=== PATIENT | male | born 1990 | race Two or more races ===

== ENCOUNTER 2020-05-08 15:05 | Outpatient (REF) | payer OTHER, SELFPAY | END 2020-05-08 15:06 | disposition home or self-care (01) | LOC: HO.LAB 15:05 | PROVIDERS: PCP Internal Medicine; Visit Provider Internal Medicine | DX: Z20.822 Contact with and (suspected) exposure to COVID-19 (principal) | CPT/HCPCS: 36415; C9803; U0003 ==

== ENCOUNTER 2020-05-28 11:59 | Outpatient (REF) | payer OTHER, SELFPAY ==
[2020-05-28 14:13] LABS: Hematocrit 42.6 % (42-52); Mean Corpuscular HGB Conc 32.9 g/dl (31.0-36.0); Mean Corpuscular Hemoglobin 27.1 pg (27.0-33.0); Mean Corpuscular Volume 82.6 fL (80-98); Mean Platelet Volume 10.9 fL (9.4-12.4); Platelet Count 278 X10*3/uL (160-400); Red Blood Count 5.16 X10*6/uL (4.60-5.80); Red Cell Distribution Width 13.4 % (11.0-16.0); White Blood Count 8.3 X10*3/uL (4.8-10.8)
[2020-05-28 14:21] LABS: Estimated Average Glucose 103 mg/dL; Hemoglobin A1c % 5.2 %
[2020-05-28 14:33] LABS: Alanine Aminotransferase 75 U/L (0-40); Albumin Level 4.2 g/dL (3.5-5.0); Alkaline Phosphatase 62 U/L (39-117); Anion Gap 13 (12-20); Aspartate Amino Transferase 43 U/L (5-37); Blood Urea Nitrogen 15 mg/dL (9-16); Calcium 8.8 mg/dL (8.4-10.2); Carbon Dioxide 28 mmol/L (22-29); Chloride 104 mmol/L (96-108); Cholesterol 172 mg/dL; Estimated Glomerular Filt Rate > 60; Glucose Fasting 72 mg/dL (60-99); HDL Cholesterol 43 mg/dL; LDL Cholesterol Calculated 103 mg/dl; Potassium 4.6 mmol/L (3.3-5.1); Sodium 140 mmol/L (135-145); Total Protein 7.6 g/dL (6.5-8.0); Triglycerides 134 mg/dL
[2020-05-28 14:53] LABS: TSH reflex Free T4 1.56 uIU/mL (0.32-4.0)
== END 2020-05-28 12:00 | disposition home or self-care (01) ==
LOC: HO.HMGCLDS 11:59
PROVIDERS: PCP Physician Assistant; Visit Provider Physician Assistant
DX: I10 Essential (primary) hypertension (principal); Z13.29 Encounter for screening for other suspected endocrine disorder; Z13.220 Encounter for screening for lipoid disorders; Z13.1 Encounter for screening for diabetes mellitus
CPT/HCPCS: 36415; 80053; 80061; 83036; 84443; 85027

== ENCOUNTER 2020-06-17 08:24 | Outpatient (REF) | payer OTHER, SELFPAY ==
--- NOTE | ~2020-06-17 | US_ITS ---
EXAMINATION: US ABDOMEN COMPLETE CLINICAL INFORMATION: Abnormal LFTs. Splenomegaly. COMPARISON: Ultrasound abdomen 12/02/2015. TECHNIQUE: Real-time imaging of the abdominal viscera. FINDINGS: PANCREAS: The visualized head and body of the pancreas appears unremarkable. Remainder of the pancreas is obscured by bowel gas. ABDOMINAL AORTA: The proximal, mid, and distal segments are normal in caliber. INFERIOR VENA CAVA: Visualized portions are normal. LIVER: Diffuse increased echogenicity. The liver is normal in size. The liver contour is normal. No focal hepatic lesion. There is no intrahepatic biliary duct dilatation seen. GALLBLADDER: Normal. The gallbladder is physiologically distended without evidence of stones, sludge, polyps, wall thickening or pericholecystic fluid. COMMON BILE DUCT: Normal in caliber measuring 0.40 cm in diameter. RIGHT KIDNEY: Normal. No hydronephrosis. No renal calculi or focal parenchymal lesions. The kidney measures 11.4 cm in maximum dimension. LEFT KIDNEY: Normal. No hydronephrosis. No renal calculi or focal parenchymal lesions. The kidney measures 12.3 cm in maximum dimension. SPLEEN: Enlarged. The spleen measures 16.7 cm in maximum dimension. FREE FLUID: None. US/US abdomen complete IMPRESSION: 1. There is generalized increase in hepatic echotexture, consistent with fatty infiltration or hepatocellular disease. Please correlate clinically. No focal hepatic mass or intrahepatic biliary duct dilatation is seen. 2. Splenomegaly measuring 16.7 cm.
== END 2020-06-17 08:25 | disposition home or self-care (01) ==
LOC: HO.US 08:24
PROVIDERS: PCP Physician Assistant; Visit Provider Physician Assistant
DX: R16.1 Splenomegaly, not elsewhere classified (principal); R74.8 Abnormal levels of other serum enzymes
CPT/HCPCS: 76700

== ENCOUNTER 2021-04-27 10:07 | Outpatient (REF) | payer OTHER, SELFPAY ==
--- NOTE | ~2021-04-27 | MM_ITS ---
EXAMINATION: MM DIAGNOSTIC DIGITAL BREAST TOMOSYNTHESIS, BILATERAL US DIAGNOSTIC ULTRASOUND BREAST, RIGHT CLINICAL INFORMATION: 30-year-old with fullness and pain retroareolar right breast. COMPARISON: CTA chest 09/02/2018. TECHNIQUE: Digital breast tomosynthesis is performed in both the craniocaudal and mediolateral oblique views along with computer-aided detection (CAD). Synthesized 2D images are generated from the tomosynthesis. Additional right CC view is provided. Ultrasound right breast is targeted to the retroareolar and periareolar region and upper outer quadrant. Grayscale imaging and color Doppler are performed without and with harmonics. FINDINGS: There are scattered areas of fibroglandular density (ACR BI-RADS breast composition Category b). There is mild gynecomastia parenchymal pattern retroareolar right breast. Neither breast shows significant mass or architectural abnormality or abnormal calcifications. The skin contours are smooth. There is no skin thickening or coarsening of the stromal markings. There is a grouping of 3 small intramammary nodes upper outer quadrant right breast mid depth, similar to CT chest 2019. Ultrasound demonstrates typical gynecomastia type parenchymal pattern retroareolar breast without mass or architectural abnormality. No skin thickening or edema tracking in soft tissue planes. There are small intramammary nodes again seen upper outer quadrant corresponding to the mammography in prior CT. Results are discussed with the patient at time of visit. MM/MM tomosynthesis diagnostic BI IMPRESSION: 1. Right: Mild right gynecomastia. 2. Left: Unremarkable left breast. ASSESSMENT: BI-RADS 2: Benign RECOMMENDATION: Patient may be managed based on the clinical impression. If clinically indicated, further evaluation may be considered with surgical consult. Decision to proceed with biopsy should be based on clinical grounds and degree of clinical concern.
== END 2021-04-27 10:08 | disposition home or self-care (01) ==
LOC: HO.MAMMO 10:07
PROVIDERS: Visit Provider Physician Assistant
DX: N63.15 Unspecified lump in the right breast, overlapping quadrants (principal)
CPT/HCPCS: 76642; 77062; 77066

== ENCOUNTER 2022-02-25 13:40 | Emergency (ER) | payer OTHER, SELFPAY ==
[2022-02-25 13:44] VITALS: BP 127/81; PULSE 84; RESP 18; TEMP 36.9; O2SAT 98; BMI 55.0
--- NOTE | 2022-02-25 15:50 | ED_ITS ---
HPI - General Adult General Chief complaint: General Medical Stated complaint: Hemorrhoid Time Seen by Provider: 02/25/22 15:37 Source: patient, RN notes reviewed and old records reviewed Mode of arrival: ambulatory Limitations: no limitations History of Present Illness HPI narrative: 31-year-old male with past medical history of external bleeding hemorrhoids, GERD, gynecomastia, splenomegaly, hypertension, hypercholesteremia, RUTHANN is here for complaining of rectal pain. Patient states that he has had external hemorrhoids for sometimes. Patient states that right now he feels like the inflamed. Occasional blood in the stools after he wipes. Patient reports that he is not constipated. Reports that he is moving his bowels without any issues. Patient reports small amount of blood on the tissue after wiping. Onset (ago): day(s) Location: buttocks (Rectum) Related Data Previous Rx's Medication Instructions Recorded cpap #1 ea 05/07/20 blood pressure kit-extra large #1 ea 05/28/20 chlorhexidine gluconate 4 % 1 appl topical DAILY 30 days #473 04/08/21 topical liquid mL doxycycline hyclate 100 mg capsule 100 mg PO BID 7 days #14 caps 04/08/21 famotidine 20 mg tablet 20 mg PO BEDTIME PRN reflux 30 05/09/21 days #30 tabs docusate sodium 100 mg capsule 100 mg PO DAILY #30 caps 02/25/22 hydrocortisone 2.5 % topical cream 1 appl RI BID-TID PRN hemorrhoids 02/25/22 with perineal applicator #30 grams (Proctosol HC) Allergies Allergy/AdvReac Type Severity Reaction Status Date / Time CONTRAST Allergy Unknown NAUSEA & Uncoded 01/10/20 16:04 VOMITING contrast dye Allergy Unknown unknown Uncoded 05/11/20 17:16 Review of Systems Review of Systems: Constitutional : No Weight loss, No Fever, No Chills, No Night Sweats, No Fatigue, No MalaiseG Gastrointestinal : No Nausea, No Vomiting, No Diarrhea, No Constipation, No abdominal Pain, No Hematochezia, No Melena, rectal pain Genitourinary : no irregular bleeding, No Dysuria, No Urinary Frequency, No Hematuria, No Urinary Incontinence, No Urgency, No Flank Pain, No Urinary Flow Changes, No Hesitancy Musculoskeletal : No joint pain, No Myalgias, No Joint Swelling Skin : No Skin Lesions, No rash Neuro : No Weakness, No Numbness, No Paresthesias, No Loss of Consciousness, No Dizziness, No Headache Psych : No Anxiety/Panic, No Depression, No SI/HI/AH/VH, No Social Issues, Heme/Lymph: No Bruising, No Bleeding,No Lymphadenopathy Endocrine : No Polyuria, No Polydipsia, No Temperature Intolerance Yes all other systems are reviewed and are negative [facility] Past Medical History Medical History RUTHANN (obstructive sleep apnea) Social History Social History (Updated 05/28/20 @ 18:15 by Travon Hawkins PA-C) Alcohol intake: never Advance Directives: No Advance Directives Information Provided: No 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 Physical Exam ED Vital Signs: Vital Signs - 24 hr 02/25/22 13:44 Temperature 98.4 F Pulse Rate 84 Respiratory Rate 18 Blood Pressure 127/81 Pulse Oximetry 98 Oxygen Delivery Method Room Air BMI result Body Mass Index 55.0 Const General: no acute distress Nutritional Appearance: obese Orientation/consciousness: patient oriented x3 Limitations: no limitations GI Inspection: Yes normal to inspection and Yes obesity Auscultation: normal bowel sounds Rectal Exam - Male: Yes External hemorrhoid(s) present (1-3 o'clock 1.5 cm external hemorrhoid, nonbleeding) General: Yes no CVA tenderness Back/Spine/Pelvis Back: no CVA tenderness Neuro General: patient oriented x3 Course Course Course Narrative: 31-year-old male with past medical history of external bleeding hemorrhoids, GERD, gynecomastia, splenomegaly, hypertension, hypercholesteremia, RUTHANN is here for complaining of rectal pain. Patient states that he has had external hemorrhoids for sometimes. Patient states that right now he feels like the inflamed. Occasional blood in the stools after he wipes. Patient reports that he is not constipated. Reports that he is moving his bowels without any issues. Patient reports small amount of blood on the tissue after wiping. Flat noninflamed external hemorrhoid. Will send patient home high dose hydrocortisone. Patient was encouraged to use Sitz baths, donut pillow. Patient can get [id number] melatonin 3 mg to help him get some sleep. Patient will follow-up with his PCP and General surgery. Patient was encouraged to return to emergency department if he will have increased rectal bleed and rectal pain. Discharge Plan Discharge Clinical Impression: External bleeding hemorrhoids Patient Disposition: Home, Self-Care Instructions: Hemorrhoids (ED) Additional Instructions: You were seen here today and diagnosed with external hemorrhoids. Please make sure that you do Sitz baths, sit on donut pillow. Make sure that you apply Proctosol cream 2 to 3 times a day as directed. Start taking docusate sodium 100 mg every evening. If you continue to have rectal pain, bleed you may follow-up with General surgery. You may take melatonin 3 mg every night to help you sleep. Prescriptions: New docusate sodium 100 mg capsule 100 mg PO DAILY Qty: 30 0RF hydrocortisone [Proctosol HC] 2.5 % cream with perineal applicator 1 appl RI BID-TID PRN (Reason: hemorrhoids) Qty: 30 0RF No Action (DME) cpap 4-10 cm H2) See Rx Instructions .Route .MEDSUPPLY Qty: 1 0RF Rx Instructions: As directed famotidine 20 mg tablet 20 mg PO BEDTIME PRN (Reason: reflux) 30 Days Qty: 30 3RF (DME) blood pressure kit-extra large Kit See Rx Instructions .ROUTE .MEDSUPPLY Qty: 1 0RF Rx Instructions: As directed chlorhexidine gluconate 4 % liquid 1 appl topical DAILY 30 Days Qty: 473 0RF doxycycline hyclate 100 mg capsule 100 mg PO BID 7 Days Qty: 14 0RF Referrals: Travon Hawkins PA-C [Primary Care Provider] - Stevan Marmolejo MD [Physician] - 2 weeks (External hemorrhoids) Interventions: ED Discharge Assessment Last Done: 02/25/22 16:12 Discharge Date/Time: 02/25/22 16:12
--- OUTSIDE RECORDS SUMMARY | 2022-02-25 16:03 | XMS_ITS | Continuity of Care Document ---
:1990 Author Organization [facility] Address [address] [place] [address] Drive [address] [place] [address]- Care Team Providers Name Role Phone Yola Brito MD Primary Care Physician Encounter [facility] ACCT R [id number] Date(s): 02/01/20 - 02/08/20 [facility] [address] [place] [address] Drive [address] [place] [address]- [facility] Attending Physician: Chuckie Villa MD Referring Physician: Yola Brito MD Allergies, Adverse Reactions, Alerts Substance Reaction Severity Status iodinated radiocontrast dyes N/V Act sunita Medications Neurontin 100 mg oral capsule 100 mg, 1, capsule, By Mouth, 3 times a day, # 42 capsule, Refills 0, Tot. Refills 0, Maintenance, 01/12/19 14:47:09 EDT, Route to Pharmacy Electronically, [id number], [facility]/pharmacy #[id number] Start Date: 01/12/19 Stop Date: 01/26/19 Status: OrderedoxyCODONE 5 mg oral tablet See Instructions, PRN, 1-2 tabletS By Mouth at bedtime prn break thru pain, # 15 tablet, Refills 0, Tot. Refills 0, Maintenance, for pain, 01/22/19 9:16:29 EDT, Instructions Replace Required Details, Route to Pharmacy Electronically, [id number]... Start Date: 01/22/19 Status: Ordered Problem List Condition Effective Dates Status Health Status Informant Gynecomastia(Confirmed) Active Vital Signs Most recent to oldest [Reference Range]: 1 Height 180.34 cm (02/01/20 9:26 AM) Weight 154 kg (02/01/20 9:26 AM) Body Mass Index [18.5-24.99] 47.35 *>HHI* (02/01/20 9:26 AM) Temperature [96.8-100.4 DegF] 98.0 DegF (02/01/20 9:26 AM) Social History Social History Type Response Smoking Status Never smoker entered on: 10/14/15 Sex
--- OUTSIDE RECORDS SUMMARY | 2022-02-25 16:03 | XMS_ITS | Continuity of Care Document ---
:1990 Author Organization [facility] Address [address] [place] [address] Drive [address] [place] [address]- Care Team Providers Name Role Phone Ovi Cochran MD, Yola Figueroa Primary Care Physician Encounter [facility] Date(s): 07/16/19 - 07/26/19 [facility] [address] [place] [address] Drive [address] [place] [address]- [facility] Attending Physician: Admtr, Luis Daniel8 Admitting Physician: Admtr, Ar8 Referring Physician: Admtr, Ar8 Allergies, Adverse Reactions, Alerts Substance Reaction Severity Status iodinated radiocontrast dyes N/V Act sunita Medications Neurontin 100 mg oral capsule 100 mg, 1, capsule, By Mouth, 3 times a day, # 42 capsule, Refills 0, Tot. Refills 0, Maintenance, 01/12/19 14:47:09 EDT, Route to Pharmacy Electronically, [id number], [facility]/pharmacy #[id number] Start Date: 01/12/19 Stop Date: 01/26/19 Status: OrderedoxyCODONE 5 mg oral tablet See Instructions, PRN, 1-2 tabletS By Mouth at bedtime prn break thru pain, # 15 tablet, Refills 0, Tot. Refills 0, Maintenance, for pain, 01/22/19 9:16:29 EDT, Instructions Replace Required Details, Route to Pharmacy Electronically, [id number]... Start Date: 01/22/19 Status: Ordered Problem List Condition Effective Dates Status Health Status Informant Gynecomastia(Confirmed) Active Social History Social History Type Response Smoking Status Never smoker entered on: 10/14/15 Sex
--- OUTSIDE RECORDS SUMMARY | 2022-02-25 16:03 | XMS_ITS | Continuity of Care Document ---
:1990 Author Organization [facility] Address [address] [place] [address] Drive [address] [place] [address]- Care Team Providers Name Role Phone Ovi Cochran MD, Yola Figueroa Primary Care Physician Encounter [facility] Date(s): 10/08/19 - 11/07/19 [facility] [address] [place] [address] Drive [address] [place] [address]- [facility] Attending Physician: Admtr, Luis Daniel8 Admitting Physician: Admtr, Ar8 Referring Physician: Admtr, Ar8 Allergies, Adverse Reactions, Alerts Substance Reaction Severity Status iodinated radiocontrast dyes N/V Act sunita Medications Neurontin 100 mg oral capsule 100 mg, 1, capsule, By Mouth, 3 times a day, # 42 capsule, Refills 0, Tot. Refills 0, Maintenance, 01/12/19 14:47:09 EDT, Route to Pharmacy Electronically, [id number], [facility]/pharmacy #[id number] Start Date: 01/12/19 Stop Date: 01/26/19 Status: OrderedoxyCODONE 5 mg oral tablet See Instructions, PRN, 1-2 tabletS By Mouth at bedtime prn break thru pain, # 15 tablet, Refills 0, Tot. Refills 0, Maintenance, for pain, 01/22/19 9:16:29 EDT, Instructions Replace Required Details, Route to Pharmacy Electronically, [id number]... Start Date: 01/22/19 Status: Ordered Problem List Condition Effective Dates Status Health Status Informant Gynecomastia(Confirmed) Active Social History Social History Type Response Smoking Status Never smoker entered on: 10/14/15 Sex
--- OUTSIDE RECORDS SUMMARY | 2022-02-25 16:04 | XMS_ITS | Continuity of Care Document ---
:1990 Author Organization [facility] Address [address] [place] [address] Drive [address] [place] [address]- Care Team Providers Name Role Phone Ovi Cochran MD, Yola Figueroa Primary Care Physician Encounter [facility] Date(s): 06/11/19 - 08/15/19 [facility] [address] [place] [address] Drive [address] [place] [address]- [facility] Attending Physician: Chuckie Villa MD Referring Physician: Yola Brito MD Allergies, Adverse Reactions, Alerts Substance Reaction Severity Status iodinated radiocontrast dyes N/V Act sunita Medications Neurontin 100 mg oral capsule 100 mg, 1, capsule, By Mouth, 3 times a day, # 42 capsule, Refills 0, Tot. Refills 0, Maintenance, 01/12/19 14:47:09 EDT, Route to Pharmacy Electronically, [id number], [facility]/pharmacy #[id number] Start Date: 01/12/19 Stop Date: 01/26/19 Status: OrderedoxyCODONE 5 mg oral tablet See Instructions, PRN, 1-2 tabletS By Mouth at bedtime prn break thru pain, # 15 tablet, Refills 0, Tot. Refills 0, Maintenance, for pain, 01/22/19 9:16:29 EDT, Instructions Replace Required Details, Route to Pharmacy Electronically, [id number]... Start Date: 01/22/19 Status: Ordered Problem List Condition Effective Dates Status Health Status Informant Gynecomastia(Confirmed) Active Social History Social History Type Response Smoking Status Never smoker entered on: 10/14/15 Sex
--- OUTSIDE RECORDS SUMMARY | 2022-02-25 16:04 | XMS_ITS | Continuity of Care Document ---
:1990 Author Organization [facility] Address [address] [place] [address] Drive [address] [place] [address]- Care Team Providers Name Role Phone Ovi Cochran MD, Yola Figueroa Primary Care Physician [place] [facility] [place]s): 07/31/19 - 11/07/19 [facility] [address] [place] [address] Drive [address] [place] [address]- [facility] Attending Physician: Chuckie Villa MD Allergies, Adverse Reactions, Alerts Substance Reaction Severity Status iodinated radiocontrast dyes N/V Act sunita Medications Neurontin 100 mg oral capsule 100 mg, 1, capsule, By Mouth, 3 times a day, # 42 capsule, Refills 0, Tot. Refills 0, Maintenance, 01/12/19 14:47:09 EDT, Route to Pharmacy Electronically, [id number], [facility]/pharmacy #[id number] Start Date: 01/12/19 Stop Date: 01/26/19 Status: OrderedoxyCODONE 5 mg oral tablet See Instructions, PRN, 1-2 tabletS By Mouth at bedtime prn break thru pain, # 15 tablet, Refills 0, Tot. Refills 0, Maintenance, for pain, 01/22/19 9:16:29 EDT, Instructions Replace Required Details, Route to Pharmacy Electronically, [id number]... Start Date: 01/22/19 Status: Ordered Problem List Condition Effective Dates Status Health Status Informant Gynecomastia(Confirmed) Active Social History Social History Type Response Smoking Status Never smoker entered on: 10/14/15 Sex
--- OUTSIDE RECORDS SUMMARY | 2022-02-25 16:04 | XMS_ITS | Continuity of Care Document ---
:1990 Author Organization [facility] Address [address] [place] [address] Drive [address] [place] [address]- Care Team Providers Name Role Phone Ovi Cochran MD, Yola Figueroa Primary Care Physician Encounter [facility] [place] Date(s): 02/01/20 - 03/02/20 [facility] [address] [place] [address] Drive [address] [place], [place] [address] Attending Physician: Admtr, Luis Daniel8 Admitting Physician: Admtr, Ar8 Referring Physician: Admtr, Ar8 Allergies, Adverse Reactions, Alerts Substance Reaction Severity Status iodinated radiocontrast dyes N/V Act sunita Medications Neurontin 100 mg oral capsule 100 mg, 1, capsule, By Mouth, 3 times a day, # 42 capsule, Refills 0, Tot. Refills 0, Maintenance, 01/12/19 14:47:09 EDT, Route to Pharmacy Electronically, [id number], [facility]/pharmacy #[id number] Start Date: 01/12/19 Stop Date: 01/26/19 Status: OrderedoxyCODONE 5 mg oral tablet See Instructions, PRN, 1-2 tabletS By Mouth at bedtime prn break thru pain, # 15 tablet, Refills 0, Tot. Refills 0, Maintenance, for pain, 01/22/19 9:16:29 EDT, Instructions Replace Required Details, Route to Pharmacy Electronically, [id number]... Start Date: 01/22/19 Status: Ordered Problem List Condition Effective Dates Status Health Status Informant Gynecomastia(Confirmed) Active Social History Social History Type Response Smoking Status Never smoker entered on: 10/14/15 Sex
--- OUTSIDE RECORDS SUMMARY | 2022-02-25 16:04 | XMS_ITS | Continuity of Care Document ---
:1990 Author Organization [facility] Address [address] [place] [address] Drive [address] [place] [address]- Care Team Providers Name Role Phone Ovi Cochran MD, Yola Figueroa Primary Care Physician Encounter [facility] [place] Date(s): 06/11/19 - 06/18/19 [facility] [address] [place] [address] Drive [address] [place] [address]- [facility] Attending Physician: Chuckie Villa MD Allergies, Adverse Reactions, Alerts Substance Reaction Severity Status iodinated radiocontrast dyes N/V Act sunita Medications Neurontin 100 mg oral capsule 100 mg, 1, capsule, By Mouth, 3 times a day, # 42 capsule, Refills 0, Tot. Refills 0, Maintenance, 01/12/19 14:47:09 EDT, Route to Pharmacy Electronically, [id number], [facility]/pharmacy #[id number] Start Date: 01/12/19 Stop Date: 01/26/19 Status: OrderedoxyCODONE 5 mg oral tablet See Instructions, PRN, 1-2 tabletS By Mouth at bedtime prn break thru pain, # 15 tablet, Refills 0, Tot. Refills 0, Maintenance, for pain, 01/22/19 9:16:29 EDT, Instructions Replace Required Details, Route to Pharmacy Electronically, [id number]... Start Date: 01/22/19 Status: Ordered Problem List Condition Effective Dates Status Health Status Informant Gynecomastia(Confirmed) Active Vital Signs Most recent to oldest [Reference Range]: 1 Height 180.34 cm (06/11/19 2:06 PM) Weight 154 kg (06/11/19 2:06 PM) Body Mass Index [18.5-24.99] 47.35 *>I* (06/11/19 2:06 PM) Social History Social History Type Response Smoking Status Never smoker entered on: 10/14/15 Sex
--- OUTSIDE RECORDS SUMMARY | 2022-02-25 16:04 | XMS_ITS | Continuity of Care Document ---
:1990 Author Organization [facility] Address [address] [place] [address]- Care Team Providers Name Role Phone Ovi Cochran MD, Lucrecia Primary Care Physician Encounter [facility] [place] Date(s): 02/09/21 - 02/09/[address] [address]- Discharge Disposition: A-D/C Walkout Attending Physician: Not on Staff, Attending MD Admitting Physician: Not on Staff, Admitting MD Referring Physician: Not on Staff, Referring MD Allergies, Adverse Reactions, Alerts Substance Reaction Severity Status iodinated radiocontrast dyes N/V Act sunita Medications Neurontin 100 mg oral capsule 100 mg, 1, capsule, By Mouth, 3 times a day, # 42 capsule, Refills 0, Tot. Refills 0, Maintenance, 01/12/19 14:47:09 EDT, Route to Pharmacy Electronically, [id number], [facility]/pharmacy #[id number] Start Date: 01/12/19 Stop Date: 01/26/19 Status: OrderedoxyCODONE 5 mg oral tablet See Instructions, PRN, 1-2 tabletS By Mouth at bedtime prn break thru pain, # 15 tablet, Refills 0, Tot. Refills 0, Maintenance, for pain, 01/22/19 9:16:29 EDT, Instructions Replace Required Details, Route to Pharmacy Electronically, [id number]... Start Date: 01/22/19 Status: Ordered Problem List Condition Effective Dates Status Health Status Informant Gynecomastia(Confirmed) Active Results Radiology Reports Exam Date Time Procedure Performing Provider Status 02/09/21 12:52 PM Chest 2 Views Frontal and Sandy Bhatti (Verified) Lat Notes:(Chest 2 Views Frontal and Lat) Reason For Exam: Chest Pain;Other:RESULT: Chest 2 Views Frontal and Lat Chest 2 Views Frontal and Lat Hx of Present Illness: epigastric abd pain x 1 week and dark stools x2-days, +nausea, denies fevers or chills hx of enlarged spleen; Reason: Other:; Chest Pain; COMPARISON: 01/26/2017. FINDINGS: LINES AND TUBES: None. LUNGS AND PLEURA: Clear lungs. Normal pulmonary vascularity. No pleural effusion. No pneumothorax. HEART, MEDIASTINUM AND JAMARCUS: Heart is normal in size. Normal upper mediastinal and hilar contour. BONES AND SOFT TISSUES: No acute abnormality. IMPRESSION: No acute abnormality. WSN: [id number] Ordering Physician: Frida Guaman MD Dictated By: Chris Gutierrez MD Dictated Date/Time: 02/09/21 1:21 pm Reviewed By: Chris Gutierrez MD Signed By: Chris Gutierrez MD Signed Date/Time: 02/09/21 1:21 pm Transcribed By: CIELO Transcribed Date/Time: 02/09/21 1:11 pm Vital Signs Most recent to oldest [Reference Range]: 1 2 Height 180 cm (02/09/21 11:46 AM) Weight 178 kg (02/09/21 11:46 AM) Oxygen Saturation [94-100 %] 97 % 99 % (02/09/21 11:46 AM) (02/09/21 11:13 AM) Pulse Rate [55-90 bpm] 84 bpm 100 bpm (02/09/21 11:46 AM) *H* (02/09/21 11:13 AM) Blood Pressure [90-138/55-84 mm Hg] 152/98 mm Hg *H* (02/09/21 11:46 AM) Respiratory Rate [16-30 br/min] 18 br/min (02/09/21 11:46 AM) Temperature [96.8-100.4 DegF] 97.7 DegF (02/09/21 11:46 AM) Mode of Delivery (Oxygen) Room air Room air (02/09/21 11:46 AM) (02/09/21 11:13 AM) Blood pressure sites Arm, right (02/09/21 11:46 AM) Temperature Route Oral (02/09/21 11:46 AM) Dry Weight 178 kg (02/09/21 11:46 AM) Social History Social History Type Response Smoking Status Never smoker entered on: 10/14/15 Sex
== END 2022-02-25 16:12 | disposition home or self-care (01) ==
PROVIDERS: Emergency Provider Emergency Medicine; PCP Physician Assistant
DX: K64.4 Residual hemorrhoidal skin tags (principal); I10 Essential (primary) hypertension; E66.9 Obesity, unspecified; Z68.43 Body mass index [BMI] 50.0-59.9, adult
CPT/HCPCS: 99282; 99283

== ENCOUNTER 2022-12-21 11:05 | Outpatient (AMB) | payer OTHER, SELFPAY ==
[2022-12-21 11:07] VITALS: BP 110/60; PULSE 73; O2SAT 97; BMI 57.2
--- NOTE | 2022-12-21 11:07 | A.OFFPC_ITS ---
Vital Signs 12/21/22 11:07 Height 5 ft 11 in Weight 410 lb BMI 57.2 BP 110/60 Blood Pressure Location Lt brachial Position Sitting Pulse 73 Pulse Source Pulse Oximeter Pulse Oximetry (%) 97 Oxygen Delivery Method Room Air Intake Visit Reasons: Annual PE Intake Note: Patient is here today for a physical. 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: Not Required per policy Accompanied by: Self / Same As Patient Allergies No Known Allergies Allergy (Verified 12/21/22 11:39) Medication List - Last Reconciled 12/21/22 by GABE Fuentes [cpap As directed] Tobacco use date assessed: 12/21/22 Dental Screening Dental Screen Date: 12/21/22 Did you have a dental visit in the last 12 months?: No Did you have a dental problem in the last 6 months where you did not have access to dental care?: No Was dental information given to patient?: No HPI HPI Comments History of Present Illness Details 32-year-old male past medical history significant for GERD, hypertension, splenomegaly, gynecomastia and obstructive sleep apnea. Patient of Samm Hawkisn last seen 2 years ago presents today for physical exam. Review of the notes patient was seen in the emergency room in February for bleeding hemorrhoid prescribed hydrocortisone cream recommended Sitz baths. Patient currently using CPAP greater than 4 hours good effect. Does report CPAP machine is pumping strange. Referral placed to pulmonology to establish care for new CPAP machine. Patient requesting referral for [facility] bariatric surgery, referral entered. Patient also reports that he gets frequent Boils type occasionally filled pus come and go. Patient states constantly wearing boots and reports that the bottom of his feet are flaking and occasionally itchy. Eye exam: 2020 [facility] Medical History RUTHANN (obstructive sleep apnea) Surgical History History of surgery on wrist Family History (Updated 12/21/22 @ 11:43 by GABE Fuentes) Mother No problems noted. Father No problems noted. 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 1. Little interest or pleasure in doing things: not at all 2. Feeling down, depressed, or hopeless: not at all 3. Trouble falling or staying asleep, or sleeping too much: not at all 4. Feeling tired or having little energy: not at all 5. Poor appetite or overeating: not at all 6. Feeling bad about yourself - or that you are a failure or have let yourself or your family down: not at all 7. Trouble concentrating on things, such as reading the newspaper or watching television: not at all 8. Moving or speaking so slowly that other people could have noticed. Or the opposite - being so fidgety or restless that you have been moving around a lot more than usual: not at all 9. Thoughts that you would be better off or of hurting yourself in some way: not at all Total score: 0 Depression Screening Interpretation: Negative 55577 - PHQ-9 Billing: Yes Source: Developed by Drs. Jonel Gutierrez, Sloane Warner, Wes Oakes and colleagues, with an educational xenia from [employer]. Thrive Questionnaire Date Thrive assessed: 12/21/22 I am a: Patient What is your living situation today?: I have a steady place to live Within the past 12 months, did the food you bought not last and you didn't have the money to get more?: Never true Within the past 12 months, did you worry whether your food would run out before you got money to buy more?: Never true Do you have trouble paying for medicines?: No Do you have trouble getting transportation to medical appointments?: No Do you have trouble paying your heating and electricity bill?: No Do you have trouble taking care of your child, family member or friend?: No Do you have trouble with day-to-day activities such as bathing, preparing meals, shopping, managing finances, etc.?: No Are you currently unemployed and looking for a job?: No Are you interested in more education?: No Currently or been in a relationship where the following occur: no concerns reported AUDIT C Alcohol Use Questionnaire (AUDIT-C) 1. How often do you have a drink containing alcohol?: Monthly or less Total Score: 1 MARGY-7 AMB Questionnaire MARGY-7 Date MARGY - 7 assessed: 12/21/22 Feeling nervous, anxious, or on edge: 0 = Not at all Not being able to stop or control worryin = Not at all Worrying too much about different things: 0 = Not at all Trouble relaxin = Not at all Being so restless that it is hard to sit still: 0 = Not at all Becoming easily annoyed or irritable: 0 = Not at all Feeling afraid as if something awful might happen: 0 = Not at all Total MARGY-7 score (0-4 normal; 5-9 mild; 10-14 moderate; 15-21 severe): 0 Source: Developed by Drs. Jonel Gutierrez, Sloane Warner, Wes Oakes and colleagues, with an educational xenia from [employer]. MARGY-7 Assessment Billing MARGY-7 Assessment Tool: MARGY-7 Assessment 09614 Review of Systems Const Denies chills, Denies fatigue, Denies fever(s) and Denies poor appetite Eyes Denies no additional complaints ENT Reports Normal hearing present Card Denies chest pain, Denies syncope, Denies rapid heart rate and Denies dyspnea Resp Denies cough and Denies dyspnea GI Denies change in stool character, Denies constipation, Denies diarrhea, Denies nausea and Denies vomiting Denies dysuria, Denies urinary frequency and Denies urinary urgency Skin/Breast Reports other (boil to right side ) Neuro Reports Normal hearing present, Denies confusion and Denies syncope Psych Denies confusion Endo Denies fatigue Physical exam (Primary Care) Vital Signs: Last Vital Signs Pulse 73 12/21/22 11:07 BP 110/60 12/21/22 11:07 Pulse Ox 97 12/21/22 11:07 Oxygen Delivery Method Room Air 12/21/22 11:07 BMI result Body Mass Index 57.2 Tobacco/Smoking Status: Tobacco use Status Tobacco use date assessed 12/21/22 12/21/22 11:19 Patient Tobacco Use Status Never used Tobacco 12/21/22 11:43 e-Cigarette/Vaping Use Never Used 12/21/22 11:43 PHQ-9: PHQ-9 Score PHQ-9: Total score 0 12/21/22 11:44 Depression Screening Interpretation: Negative Thrive Assessment: Date of Thrive Assessment Date Thrive assessed 12/21/22 12/21/22 11:36 Currently or been in a relationship where the following occur: no concerns reported Const General: cooperative and healthy appearing; No acute distress or confusion Orientation/consciousness: patient oriented x3 and No confusion HENMT Head: Yes normocephalic and Yes atraumatic Ears: external ears normal and TM's normal bilaterally General nose exam: Normal external nose present and Normal nasal mucous membranes and turbinates present Face and sinus: Yes normal facial exam and Yes sinuses nontender Mouth: moist mucous membranes Throat: Yes tonsils normal Eyes Conjunctivae: conjunctivae normal Sclerae: sclerae normal Pupils: Equal, round and reactive pupils present and Pupils normal by confrontation EOM: EOMs intact bilaterally Direct Ophthalmoscopy: normal light reflex Neck Neck: Yes no lymphadenopathy and Yes supple Thyroid: Thyroid normal Chest Chest palpation & inspection: normal inspection of the chest Resp Effort & Inspection: normal respiratory effort Auscultation: clear to auscultation bilaterally, no crackles, no rhonchi and no wheezes Cardio Rate: regular rate Rhythm: regular rhythm Peripheral pulses: radial pulses present and dorsalis pedis present GI Inspection: Yes normal to inspection Palpation (GI): Soft to palpation, nontender and No hepatosplenomegaly present Auscultation: normoactive bowel sounds Skin General skin exam: other (Quarter size erythematous superficial abscess noted to right side) Neuro General: patient oriented x3 and No confusion Cranial nerves: Yes CN's II-XII intact bilaterally, Yes Equal, round and reactive pupils present and Yes Normal hearing present Cognition (Neuro): normal cognition Gait exam (Neuro): Normal gait present Motor exam (neuro): 5/5 motor strength present throughout Deep tendon reflexes (DTR's): Right brachioradialis reflex intensity grade: 2+, Left brachioradialis reflex intensity grade: 2+, Right patellar reflex intensity grade: 2+ and Left patellar reflex intensity grade: 2+ Extrem General: No edema Assessment and Plan Assessment & Plan (1) HTN (hypertension): Code(s): I10 - Essential (primary) hypertension Qualifiers: Hypertension type: essential hypertension Qualified Code(s): I10 - Essential (primary) hypertension Plan: Blood pressure optimal in office today. Not currently on any hypertensive medication at this. (2) Obese: Code(s): E66.9 - Obesity, unspecified Qualifiers: Body mass index: BMI 60.0-69.9 Obesity classification: adult class 3 (BMI >= 40) Obesity type: due to excess calories Serious obesity comorbidity presence: without serious comorbidity Qualified Code(s): E66.01 - Morbid (severe) obesity due to excess calories; Z68.44 - Body mass index [BMI] 60.0- 69.9, adult Plan: Referral entered to [facility] bariatric surgery as requested by patient. (3) RUTHANN (obstructive sleep apnea): Code(s): G47.33 - Obstructive sleep apnea (adult) (pediatric) Plan: Referral entered to pulmonology to establish care for new CPAP machine. (4) Abscess of skin or subcutaneous tissue: Code(s): L02.91 - Cutaneous abscess, unspecified Plan: Keflex 500 mg b.i.d. x7 days sent to patient's pharmacy (5) Athletes foot: Code(s): B35.3 - Tinea pedis Plan: clotrimazole cream BID x 4 weeks sent to patients pharmacy. Plan Follow up on 6 months. Orders: Orders Comprehensive [place]. Panel Fast Today I10 - Essential (primary) hypertension Lipid Panel Today E66.9 - Obesity, unspecified TSH reflex Free T4 Today Z13.29 - Encounter for screening for other suspected endocrine disorder Complete Blood Count Auto Diff Today Z13.0 - Encounter for screening for diseases of the blood and blood-forming organs and certain disorders involving the immune mechanism Referrals Bariatric Surgery Referral E66.9 - Obesity, unspecified Pulmonology Referral G47.33 - Obstructive sleep apnea (adult) (pediatric) Medications: New clotrimazole 1% (Athlete's Foot (clotrimazole)) 1 appl topical BID 45 grams 0RF 4 weeks B35.3 - Tinea pedis cephalexin 500 mg PO BID 14 caps 0RF L02.91 - Cutaneous abscess, unspecified Coding Level of Care Code Est Pt Prev Care 18-39y(23328) Diagnoses HTN (hypertension) I10 Hypertension type: essential hypertension Obese E66.01; Z68.44 Body mass index: BMI 60.0-69.9 Obesity classification: adult class 3 (BMI >= 40) Obesity type: due to excess calories Serious obesity comorbidity presence: without serious comorbidity RUTHANN (obstructive sleep apnea) G47.33 Abscess of skin or subcutaneous tissue L02.91 Athletes foot B35.3 Additional Codes MARGY-7 Assessment Billing - MARGY-7 Assessment Tool: MARGY-7 Assessment 37015 ([id number])
== END 2022-12-21 12:04 | disposition home or self-care (01) ==
PROVIDERS: PCP Physician Assistant; Visit Provider Nurse Practitioner Family
DX: Z00.00 Encounter for general adult medical examination without abnormal findings (principal); I10 Essential (primary) hypertension; E66.01 Morbid (severe) obesity due to excess calories; Z68.44 Body mass index [BMI] 60.0-69.9, adult; G47.33 Obstructive sleep apnea (adult) (pediatric); L02.91 Cutaneous abscess, unspecified; B35.3 Tinea pedis
CPT/HCPCS: 99395

== ENCOUNTER 2023-01-26 14:27 | Outpatient (AMB) | payer OTHER, SELFPAY ==
[2023-01-26 14:35] VITALS: BP 124/88; PULSE 76; O2SAT 97; BMI 57.3
--- NOTE | 2023-01-26 14:35 | MHC.OFFVIS ---
Intake Vital Signs 01/26/23 14:35 Height 5 ft 11 in Weight 411 lb BMI 57.3 BP 124/88 Blood Pressure Location Lt brachial Position Sitting Pulse 76 Pulse Source Pulse Oximeter Pulse Oximetry (%) 97 Oxygen Delivery Method Room Air Intake Visit Reasons: Obstructive sleep apnea Intake Note: pt is here as a new patient for onofre, he has a machine at home, he feels there is a pressure issue, pt has high deductible and has been out of supplies for a while, cpap mask offered. Told pt about cpap.[employer] Corporate Administrator Required: No Allergies No Known Allergies Allergy (Verified 01/26/23 15:08) Medication List - Last Reconciled 01/26/23 by Lyudmila Garsia MD [cpap As directed] Do you need a note to return to daycare/school/sports/work: No HPI Obstructive sleep apnea HPI Details This the 32 years old gentleman, a case of super morbid obesity, and obstructive/central sleep apneas since 2019 Is being seen for the 1st time for management of his sleep apnea. He say is that he was relatively of normal weight but after he get he put on lot of weight. He has been heavy like now, at least since 2014. Back in 2019 he was sent for a sleep study in the sleep lab. It confirms that he had very severe obstructive sleep apnea with some central component. There after the patient was started on CPAP therapy, probably by his primary care physician, with auto PAP mode ( pressure setting 4-10 cm ) He used the CPAP machine for the 1st few years regularly and was sleeping better. Now since the early 2022, he has not been able to by supplies , due to high co-payment. He is still using his CPAP but irregularly, because he does not have a functioning fullface mask. On the nights that he uses CPAP he definitely sleeps better. 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 He is the on the insurance of his , which has a high co-payment for the supplies. His comorbidities include hypertension, borderline diabetes mellitus, GERD symptoms. He has join the weight management program, and hoping that he will undergo gastroplasty procedure at some point. [facility] Medical History (Updated 01/26/23 @ 16:43 by Lyudmila Garsia MD) Morbid obesity ONOFRE (obstructive sleep apnea) Surgical History History of surgery on wrist Family History Mother No problems noted. Father No problems noted. 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 Cognitive needs: No Hearing needs: No Vision needs: No Review of Systems Const All systems reviewed & are unremarkable except as noted in HPI and below Eyes Reports no additional complaints ENT Reports no additional complaints Card Denies chest pain, Denies irregular heart rhythm, Denies leg edema and Denies dyspnea Resp Denies cough, Denies dyspnea and Denies wheezing GI Reports dyspepsia (GERD symptoms controlled with med) Reports no additional complaints Musc Reports no additional complaints Skin/Breast Reports system reviewed and no additional complaints, except as documented Neuro Reports no additional complaints Psych Reports no additional complaints Endo Reports no additional complaints Rayray/Lymph Reports no additional complaints Aller/Immun Denies wheezing Physical Exam Vital Signs: Last Vital Signs Pulse 76 01/26/23 14:35 BP 124/88 01/26/23 14:35 Pulse Ox 97 01/26/23 14:35 Oxygen Delivery Method Room Air 01/26/23 14:35 BMI result Body Mass Index 57.3 Const Other: He is super morbidly obese, neck size 19-1/2 inch , throat is narrow, Mallampati class 4 General: comfortable, no acute distress, alert and awake Orientation/consciousness: patient oriented x3 HEENT Head: Yes normal to inspection General nose exam: No nasal polyps present and No nasal discharge present Face and sinus: Yes sinuses nontender Mouth: oropharynx abnormals (Mallampati class 4) Throat: Yes posterior oropharynx normal Eyes General: appearance normal, both eyes and all related structures Neck Neck: Yes normal visual inspection, Yes no lymphadenopathy, Yes trachea midline, Yes no JVD and Yes other (Neck circumference 19-1/2 inch) Thyroid: Thyroid normal Chest Chest palpation & inspection: normal inspection of the chest, normal palpation of entire chest wall and no tenderness Resp Other: Percussion note not perceptible because of thick chest wall Breath sounds are diminished over the basilar areas because of his obesity. No wheezes rhonchi or crepitations are heard Cardio Palpation: normal PMI Rate: regular rate Rhythm: regular rhythm Heart sounds: no gallops and no murmurs Peripheral pulses: Peripheral pulses 2+ throughout GI Inspection: Yes other (Abdomen is grossly obese and protuberant) Palpation (GI): Soft to palpation, Tenderness to palpation present (GI), No hepatosplenomegaly present and Palpable mass present Auscultation: normal bowel sounds Back/Spine/Pelvis Thoracic/Lumbar Spine: thoracic and lumbar spine normal to inspection and thoraco-lumbar ROM limited Skin General skin exam: no rashes or lesions noted Neuro General: patient oriented x3 and no focal motor deficits Cranial nerves: Yes CN's II-XII intact bilaterally Extrem General: Yes normal to inspection, Yes no clubbing, cyanosis or edema, Yes no calf tenderness and Yes edema (No definite pitting edema noted) Psych Appearance: grossly normal and well kempt Speech and movement: Normal speech and movement present Results Reviewed Results Reviewed: His compliance from 11/08/22---12/07/22 is reviewed He did use it for 19/30 days, 63%. Average use per night 6 hours 14 minutes. Average pressure used 5-7.6 cm. There was the moderate amount of air leak with maximum 101.9 L/minute When he does use the CPAP his residual AHI is only 0.4. Assessment & Plan Assessment & Plan (1) Morbid obesity: Comment: HE HE IS A CASE OF SUPER MORBID OBESITY. I DISCUSSED WITH HIM AND TOLD HIM THAT IT IS IMPERATIVE FOR HIM TO LOSE WEIGHT. I RECOMMEND THAT HE SHOULD JOIN THE WEIGHT MANAGEMENT PROGRAM. Code(s): E66.01 - Morbid (severe) obesity due to excess calories (2) ONOFRE (obstructive sleep apnea): Comment: PATIENT IS KNOWN TO HAVE OBSTRUCTIVE SLEEP APNEA SINCE 2019. HE DOES HAVE CPAP EQUIPMENT HOWEVER DID NOT GET SUPPLIES DUE TO COST FACTOR. WE GAVE HIM FULLFACE MASK FROM THE OFFICE AND STRESSED THAT HE SHOULD START USING THE CPAP EVERY NIGHT. HE IS OFFERED TO BRING HIS CPAP MACHINE HERE IN THE OFFICE AND WE WILL CHECK IT. HIS COMPLIANCE REPORT SINCE , SHOWS THAT HE HAS BEEN COMPLIANT THE OFF AND ON. WHEN HE DOES USE THE CPAP HIS THE SLEEP APNEA GETS, TREATED COMPLETELY WITH RELATIVELY MINOR PRESSURE (4-10 CMs ) HE PROMISES THAT HE IS GOING TO START USING THE CPAP EVERY NIGHT. Code(s): G47.33 - Obstructive sleep apnea (adult) (pediatric) Coding Level of Care Code New Pt Level 3 (93670) Diagnoses Morbid obesity E66.01 ONOFRE (obstructive sleep apnea) G47.33
== END 2023-01-26 15:10 | disposition home or self-care (01) ==
PROVIDERS: PCP Physician Assistant; Referring Provider Nurse Practitioner Family; Visit Provider Internal Medicine
DX: E66.01 Morbid (severe) obesity due to excess calories (principal); G47.33 Obstructive sleep apnea (adult) (pediatric)
CPT/HCPCS: 99203

== ENCOUNTER → 2023-01-26 14:27 | Outpatient (BNVA) | payer OTHER, SELFPAY | PROVIDERS: PCP Physician Assistant; Visit Provider Internal Medicine ==

== ENCOUNTER 2023-01-28 09:00 | Outpatient (REF) | payer OTHER, SELFPAY | END 2023-01-28 09:01 | disposition home or self-care (01) | LOC: HO.LAB 09:00 | PROVIDERS: PCP Physician Assistant; Visit Provider Nurse Practitioner Family | DX: Z13.29 Encounter for screening for other suspected endocrine disorder (principal); Z13.0 Encounter for screening for diseases of the blood and blood-forming organs and certain disorders involving the immune mechanism; I10 Essential (primary) hypertension; E66.9 Obesity, unspecified | CPT/HCPCS: 36415; 80053; 80061; 84443; 85025 ==

== ENCOUNTER 2024-05-07 14:57 | Outpatient (AMB) | payer OTHER, SELFPAY ==
--- NOTE | 2024-05-07 15:01 | MHC.PC.OV ---
Intake Visit Reasons: overdue f/u RUTHANN, obesity Allergies No Known Allergies Allergy (Verified 01/26/23 15:08) Tobacco use date assessed: 12/21/22 Dental Screening Dental Screen Date: 12/21/22 [facility] Medical History (Updated 01/26/23 @ 16:43 by Lyudmila Garsia MD) Morbid obesity RUTHANN (obstructive sleep apnea) Surgical History History of surgery on wrist Family History Mother No problems noted. Father No problems noted. 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 Jonel Gutierrez, Sloane Warner, Wes Oakes and colleagues, with an educational xenia from [employer]. Physical exam (Primary Care) Tobacco/Smoking Status: Tobacco use Status Tobacco use date assessed 12/21/22 12/21/22 11:19 Patient Tobacco Use Status Never used Tobacco 12/21/22 11:43 e-Cigarette/Vaping Use Never Used 12/21/22 11:43 Thrive Assessment: Date of Thrive Assessment Date Thrive assessed 12/21/22 12/21/22 11:36 Coding
[2024-05-07 15:12] VITALS: BP 120/84; PULSE 82; O2SAT 97; BMI 41.3
--- NOTE | 2024-05-07 15:12 | MHC.PC.OV ---
Vital Signs 05/07/24 15:12 Height 5 ft 11 in Weight 296 lb BMI 41.3 BP 120/84 Blood Pressure Location Lt brachial Position Sitting Pulse 82 Pulse Source Pulse Oximeter Pulse Oximetry (%) 97 Oxygen Delivery Method Room Air Intake Visit Reasons: overdue PE/ RUTHANN, obesity Intake Note: The patient is here for a physical exam and follow-up after bariatric surgery performed at [facility] on 12/02/23. Their baseline weight before surgery was 392 lbs. Psych Specialist Required: No Accompanied by: Self / Same As Patient Allergies No Known Allergies Allergy (Verified 05/07/24 15:15) Medication List - Last Reviewed 05/07/24 by NELLIE Shepherd [cpap As directed] Tobacco use date assessed: 05/07/24 Dental Screening Dental Screen Date: 05/07/24 Did you have a dental visit in the last 12 months?: Yes Did you have a dental problem in the last 6 months where you did not have access to dental care?: No Was dental information given to patient?: Patient has dentist HPI overdue PE/ RUTHANN, obesity HPI Details Patient is a 33-year-old male here today for routine annual physical. Patient has a past medical history significant for her obesity, obstructive sleep apnea, GERD. .. Concern--> reports he has been having a lot of trouble sleeping particularly getting to sleep. Has tried iocz-oyv-zroghoi sleeping aids though caused him a hangover effect as a side effect. Willing to try a prescription sleeping aid .. Obstructive sleep apnea: Since his bariatric surgery he has lost significant amount of weight. He has not been using his obstructive sleep apnea machine due to feeling like he does not needed. He is interested in getting another sleep study to confirm his obstructive sleep apnea has resolved since significant weight loss. . Obesity: Has lost significant amount of weight since bariatric surgery in now feeling great. Vaccine: Decline flu, Willing to get Tdap [facility] Medical History (Updated 05/07/24 @ 15:39 by Travon Hawkins PA-C) Morbid obesity RUTHANN (obstructive sleep apnea) Surgical History Status post sleeve gastrectomy History of surgery on wrist Family History Mother No problems noted. Father No problems noted. 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 1. Little interest or pleasure in doing things: not at all 2. Feeling down, depressed, or hopeless: not at all 3. Trouble falling or staying asleep, or sleeping too much: not at all 4. Feeling tired or having little energy: not at all 5. Poor appetite or overeating: not at all 6. Feeling bad about yourself - or that you are a failure or have let yourself or your family down: not at all 7. Trouble concentrating on things, such as reading the newspaper or watching television: not at all 8. Moving or speaking so slowly that other people could have noticed. Or the opposite - being so fidgety or restless that you have been moving around a lot more than usual: not at all 9. Thoughts that you would be better off or of hurting yourself in some way: not at all Total score: 0 Depression Screening Interpretation: Negative Depression Screening Done: Yes 12512 - PHQ-9 Billing: Yes Source: Developed by Drs. Jonel Gutierrez, Sloane Warner, Wes Oakes and colleagues, with an educational xenia from [employer]. Thrive Questionnaire Date Thrive assessed: 05/07/24 I am a: Patient What is your living situation today?: I have a steady place to live Within the past 12 months, did the food you bought not last and you didn't have the money to get more?: Never true Within the past 12 months, did you worry whether your food would run out before you got money to buy more?: Never true Do you have trouble paying for medicines?: No Do you have trouble getting transportation to medical appointments?: No Do you have trouble paying your heating and electricity bill?: No Do you have trouble taking care of your child, family member or friend?: No Do you have trouble with day-to-day activities such as bathing, preparing meals, shopping, managing finances, etc.?: No Are you currently unemployed and looking for a job?: No Are you interested in more education?: No Please select the resources that you would like help with: None Currently or been in a relationship where the following occur: No concerns reported THRIVE Score: 0 AUDIT C Alcohol Use Questionnaire (AUDIT-C) 1. How often do you have a drink containing alcohol?: Monthly or less 2. How many drinks containing alcohol do you have on a typical day when you are drinking?: 3 or 4 3. How often do you have six or more drinks on one occasion?: Never Total Score: 2 MARGY-7 AMB Questionnaire MARGY-7 Date MARGY - 7 assessed: 05/07/24 Feeling nervous, anxious, or on edge: 0 = Not at all Not being able to stop or control worryin = Not at all Worrying too much about different things: 0 = Not at all Trouble relaxin = Not at all Being so restless that it is hard to sit still: 0 = Not at all Becoming easily annoyed or irritable: 0 = Not at all Feeling afraid as if something awful might happen: 0 = Not at all Total MARGY-7 score (0-4 normal; 5-9 mild; 10-14 moderate; 15-21 severe): 0 Source: Developed by Drs. Jonel Gutierrez, Sloane Warner, Wes Oakes and colleagues, with an educational xenia from [employer]. MARGY-7 Assessment Billing MARGY-7 Assessment Tool: MARGY-7 Assessment 37239 Review of Systems Const Denies body aches, Denies chills, Denies excessive sweating, Denies fatigue, Denies fever(s) and Denies headache(s) Eyes Denies blurry vision ENT Denies dysphagia, Denies vertigo, Denies dizziness, Denies headache(s), Denies hearing loss and Denies tinnitus Card Denies chest pain, Denies chest pain with activity, Denies syncope, Denies irregular heart rhythm and Denies dyspnea Resp Denies chest congestion, Denies cough, Denies hemoptysis, Denies dyspnea and Denies wheezing GI Denies abdominal pain, Denies melena, Denies hematochezia, Denies coffee ground emesis, Denies dysphagia, Denies diarrhea, Denies nausea and Denies vomiting Denies difficulty urinating, Denies dysuria, Denies urinary frequency, Denies urinary hesitancy and Denies urinary urgency Musc Denies arthralgias, Denies limited range of motion, Denies muscle cramps and Denies muscle weakness Skin/Breast Denies rash and Denies skin ulcer Neuro Denies Abnormal speech present, Denies confusion, Denies vertigo, Denies dizziness, Denies syncope, Denies headache(s), Denies memory loss and Denies seizure-like activity Psych Reports abnormal sleep pattern, Denies anxiety, Denies confusion, Denies depression, Denies memory loss, Denies panic attacks and Denies paranoia Endo Denies excessive sweating, Denies fatigue, Denies flushing, Denies polydipsia and Denies polyuria Aller/Immun Denies wheezing Physical exam (Primary Care) Vital Signs: Last Vital Signs Pulse 82 05/07/24 15:12 BP 120/84 05/07/24 15:12 Pulse Ox 97 05/07/24 15:12 Oxygen Delivery Method Room Air 05/07/24 15:12 BMI result Body Mass Index 41.3 BMI Assessment/Plan discussion: High BMI High, discussed plan: lifestyle, weight reduction, dietary and physical activity Tobacco/Smoking Status: Tobacco use Status Tobacco use date assessed 12/21/22 12/21/22 11:19 Patient Tobacco Use Status Never used Tobacco 12/21/22 11:43 e-Cigarette/Vaping Use Never Used 12/21/22 11:43 Depression Screening Interpretation: Negative Thrive Assessment: Date of Thrive Assessment Date Thrive assessed 12/21/22 12/21/22 11:36 Currently or been in a relationship where the following occur: No concerns reported Const General: cooperative, comfortable, no acute distress, alert and awake; No confusion Orientation/consciousness: oriented to person, oriented to place, patient oriented x3 and No confusion HENMT Head: Yes normocephalic Ears: external ears normal and TM's normal bilaterally Face and sinus: No sinus tenderness Mouth: Normal oral and palatal mucosa present and tongue normal Teeth and gingiva: dentition normal and gingiva normal Throat: Yes posterior oropharynx normal, Yes tonsils normal and Yes uvula midline Eyes Conjunctivae: conjunctivae normal Sclerae: sclerae normal Pupils: Equal, round and reactive pupils present EOM: EOMs intact bilaterally Direct Ophthalmoscopy: No no photophobia Neck Neck: Yes no lymphadenopathy, No tender and Yes no JVD Thyroid: Thyroid normal Carotids: no bruits Chest Chest palpation & inspection: no tenderness Resp Effort & Inspection: normal respiratory effort, no audible wheezes, not labored and no stridor Auscultation: no crackles, no rales, no rhonchi and no wheezes Cardio Jugular venous distension: no JVD Rate: regular rate, not bradycardic and not tachycardic Rhythm: regular rhythm Bruits: no carotid bruits Peripheral pulses: Peripheral pulses 2+ throughout GI Inspection: Yes normal to inspection, No abdominal wall ecchymosis and No visible herniation Palpation (GI): Soft to palpation, nontender, no guarding, not rigid and No hepatosplenomegaly present Auscultation: normoactive bowel sounds General: Yes no CVA tenderness Back/Spine/Pelvis Back: no CVA tenderness and No back tenderness Cervical Spine: cervical ROM normal Thoracic/Lumbar Spine: thoracic and lumbar spine normal to inspection, straight leg raise negative bilaterally, No thoraco-lumbar ROM limited and No lumbar spinal tenderness Skin Lesions: no lesions Rashes: no rashes Wounds: no wounds Neuro General: oriented to person, oriented to place, patient oriented x3, CN's II-XI intact bilaterally and No confusion Cranial nerves: Yes Equal, round and reactive pupils present and Yes Normal accommodation reflex present Cognition (Neuro): normal cognition Speech: No Abnormal speech present Gait exam (Neuro): Normal gait present Motor exam (neuro): 5/5 motor strength present throughout Extrem Right upper extremity: full ROM; no cyanosis Left upper extremity: full ROM; no cyanosis Right lower extremity: no edema Left lower extremity: no edema Psych Appearance: grossly normal Mental Status: mental status grossly normal Affect: normal affect Attitude: cooperative Thought process: Normal thought process present Office Procedures Flu Questionnaire Does the patient have a severe egg allergy?: No Does the patient have severe life threatening allergies?: No Does the patient have a fever or illness today?: No Has the patient ever had Guillain-Jasper Syndrome?: No Has the patient ever had any past reaction to a flu shot?: No Immunizations Fluarix Triv [id number] (PF) 45 mcg (15 mcg x 3)/0.5 mL IM syringe Performing Provider: Travon Hawkins PA-C Performing Location: [facility] Documented (not given) by: NELLIE Shepherd on 05/07/24 15:16 Reason Not Given: Patient Refused Coding Level of Care Code Est Pt Prev Care 18-39y(30588) Diagnoses Annual physical exam Z00.00 Essential hypertension I10 Hypertension type: essential hypertension RUTHANN (obstructive sleep apnea) G47.33 Class 3 obesity E66.813 Primary insomnia F51.01 Insomnia type: primary Additional Codes MARGY-7 Assessment Billing - MARGY-7 Assessment Tool: AMRGY-7 Assessment 33260 ([id number]) PHQ-9 - 36720 - PHQ-9 Billing: Yes ([id number]) Assessment & Plan Assessment & Plan (1) Annual physical exam: Code(s): Z00.00 - Encounter for general adult medical examination without abnormal findings Category: Medical Plan: As per HPI (2) HTN (hypertension): Code(s): I10 - Essential (primary) hypertension Category: Medical Qualifiers: Hypertension type: essential hypertension Qualified Code(s): I10 - Essential (primary) hypertension Plan: has resolved since losing weight secondary to his bariatric surgery. (3) RUTHANN (obstructive sleep apnea): Comment: PATIENT IS KNOWN TO HAVE OBSTRUCTIVE SLEEP APNEA SINCE 2019. HE DOES HAVE CPAP EQUIPMENT HOWEVER DID NOT GET SUPPLIES DUE TO COST FACTOR. WE GAVE HIM FULLFACE MASK FROM THE OFFICE AND STRESSED THAT HE SHOULD START USING THE CPAP EVERY NIGHT. HE IS OFFERED TO BRING HIS CPAP MACHINE HERE IN THE OFFICE AND WE WILL CHECK IT. HIS COMPLIANCE REPORT SINCE , SHOWS THAT HE HAS BEEN COMPLIANT THE OFF AND ON. WHEN HE DOES USE THE CPAP HIS THE SLEEP APNEA GETS, TREATED COMPLETELY WITH RELATIVELY MINOR PRESSURE (4-10 CMs ) HE PROMISES THAT HE IS GOING TO START USING THE CPAP EVERY NIGHT. Code(s): G47.33 - Obstructive sleep apnea (adult) (pediatric) Category: Medical Plan: Had history of obstructive sleep apnea was using a CPAP machine. Since his bariatric surgery he has stopped using his CPAP machine as he has not been having any snoring or apneic episodes. Would like to be re-evaluated with sleep apnea test to see if he still needs a CPAP machine. (4) Class 3 obesity: Code(s): E66.813 - Obesity, class 3 Category: Medical Plan: He does understand his BMI is still above 40 will continue working on low calorie intake and being physically active to maintain his weight loss (5) Insomnia: Code(s): G47.00 - Insomnia, unspecified Category: Medical Qualifiers: Insomnia type: primary Qualified Code(s): F51.01 - Primary insomnia Plan: He reports he has been having a lot of trouble sleeping more to do with having racing thoughts at night due to anxiety. Will try hydroxyzine p.r.n. as a trial. Orders: Orders Influenza [id number] Immunization Today Z23 - Encounter for immunization RT home sleep study Today G47.33 - Obstructive sleep apnea (adult) (pediatric) Comprehensive [place]. Panel Fast Today Z13.1 - Encounter for screening for diabetes mellitus Complete Blood Count no Diff Today K21.9 - Gastro-esophageal reflux disease without esophagitis Medications: New hydroxyzine HCl 25 mg PO BEDTIME 5 days 5 tabs 0RF G47.00 - Insomnia, unspecified Patient Instructions: Goal: Maintain his weight loss Barriers: Adherence to physical activity and healthy eating habits
== END 2024-05-07 15:38 | disposition home or self-care (01) ==
PROVIDERS: PCP Physician Assistant; Visit Provider Physician Assistant
DX: Z00.00 Encounter for general adult medical examination without abnormal findings (principal); I10 Essential (primary) hypertension; Z68.41 Body mass index [BMI] 40.0-44.9, adult; E66.813 Obesity, class 3; G47.33 Obstructive sleep apnea (adult) (pediatric); F51.01 Primary insomnia

== ENCOUNTER → 2024-05-07 14:57 | Outpatient (BNVA) | payer OTHER, SELFPAY | PROVIDERS: PCP Physician Assistant; Visit Provider Physician Assistant | DX: Z00.00 Encounter for general adult medical examination without abnormal findings (principal); I10 Essential (primary) hypertension; G47.33 Obstructive sleep apnea (adult) (pediatric); F51.01 Primary insomnia; E66.813 Obesity, class 3; Z68.41 Body mass index [BMI] 40.0-44.9, adult; Z28.21 Immunization not carried out because of patient refusal | CPT/HCPCS: 96127 ==

== ENCOUNTER → 2024-06-19 15:52 | Outpatient (REF) | payer OTHER, SELFPAY ==
--- OUTSIDE RECORDS SUMMARY | 2024-06-19 19:33 | XMS_ITS | Clinical Summary ---
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 4 Active cholecalciferol (VITAMIN D-3) 1,250 mcg (50,000 unit) capsule Take 1 capsule (50,000 Units total) by mouth. 4 Active ondansetron ODT (ZOFRAN-ODT) 4 mg disintegrating tablet Take 1 tablet (4 mg total) by mouth. 4 Active pantoprazole (PROTONIX) 40 mg EC tablet Take 1 tablet (40 mg total) by mouth 1 (one) time each day. 4 Active polyethylene glycol (MIRALAX) 17 gram packet Take 17 g by mouth. 4 Active simethicone (MYLICON) 80 mg chewable tablet Chew 1 tablet (80 mg total). 4 Active ursodioL (ACTIGALL) 300 mg capsule Take 2 capsules (600 mg total) by mouth. 4 05/22/19 25 Active Problems No known active problems Surgical History Surgery Date Site/Laterality Comments WRIST SURGERY PROCEDURE: HISTORICAL WRIST SURGERY Medical History Medical History Date Comments Obstructive sleep apnea DX:Obstr uctive sleep apnea Social History Tobacco Use Types Packs/Day Years Used Date Smoking Tobacco: Never Smokeless Tobacco: Never Alcohol Use Standard Drinks/Week Comments Yes 0 (1 standard drink = 0.6 oz pur e alcohol) Sex and Gender Information Value Date Recorded Sex Assigned at Not on file Legal Sex Male 8:12 PM EST Gender Identity Not on file Sexual Orientation Not on file Obstetrics History Last Filed Vital Signs Vital Sign Reading Time Taken Comments Blood Pressure 136/98 01/18/2024 10:33 AM EDT Pulse 77 01/18/2024 10:33 AM EDT Temperature - - Respiratory Rate - - Oxygen Saturation - - Inhaled Oxygen Concentration - - Weight 156 kg (343 lb) 01/18/2024 10:33 AM EDT Height 180.3 cm (5' 11 ) 01/18/2024 10:33 AM EDT Body Mass Index 47.84 01/18/2024 10:33 AM EDT Plan of Treatment Upcoming Encounters Date Type Department Care Team (Late st Contact Info) Description 07/30/2024 8:15 AM EDT Office Visit Bariatric Surgery - [place] [address] [facility] [address] [place] [address] Carmen Mallory PA [address] [facility] [address] [place] [address] Health Maintenance Due Date Last Done Comments DTaP,Tdap,and Td Vaccines (1 - Tdap) 07/23/2010 Hepatitis B Vaccines (1 of 3 - 19+ 3-dose series) 07/23/2010 Depression Screening 05/19/2023 HIV Screening 05/19/2023 Hepatitis C Screening 05/19/2023 Social Influencers of Health Screening 05/19/2023 COVID-19 Vaccine (1 - 2023-2 5 season) 2023 Influenza Vaccine (#1) 2023 Cholesterol Screening (Lipid Panel) 07/12/2028 07/13/2023 HIB Vaccines Aged Out No longer eligi ble based on patient's age to complete this topic HPV Vaccines Aged Out No longer eligi ble based on patient's age to complete this topic Hepatitis A Vaccines Aged Out No long er eligible based on patient's age to complete this topic IPV Vaccines Aged Out No longer eligi ble based on patient's age to complete this topic MMR Vaccines Aged Out No longer eligi ble based on patient's age to complete this topic Meningococcal ACWY Vaccine Aged Out N o longer eligible based on patient's age to complete this topic Meningococcal B Vacine Aged Out No lo nger eligible based on patient's age to complete this topic Pneumococcal Vaccine: Pediat rics (0 to 5 Years) and At-Risk Patients (6 to 64 Years) Aged Out No longer eligi ble based on patient's age to complete this topic RSV Immunization Patients Un rita 20 months Aged Out No longer eligible b ased on patient's age to complete this topic Varicella Vaccines Aged Out No longer eligible based on patient's age to complete this topic Procedures Procedure Name Priority Date/Time Associated Diagnosis Comments LIPID PANEL Routine 07/13/2023 from Last 3 Months or Most Recently Relevant to Health Maintenance Results * (ABNORMAL) Lipid panel (07/13/2023) LDL/HDL Ratio 3 0 - 4 Triglycerides 76 0 - 150 mg/dL Cholesterol 171 0 - 200 mg/dL HDL 51 >=40 mg/dL LDL Cholesterol 105(A) 0 - 100 mg/dL Blood Venous blood specimen / Unknown [facility] Provider LAB BLOOD ORDERABLES Angelic l Result from Last 3 Months or Most Recently Relevant to Health Maintenance Insurance [facility] Care Teams 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
== END ==
LOC: HO.SL 15:52
PROVIDERS: PCP Physician Assistant; Visit Provider Physician Assistant
DX: G47.33 Obstructive sleep apnea (adult) (pediatric) (principal)
CPT/HCPCS: 95806

== ENCOUNTER → 2024-06-20 15:57 | Outpatient (BNV) | payer OTHER, SELFPAY | PROVIDERS: PCP Physician Assistant; Visit Provider Internal Medicine | DX: R06.83 Snoring (principal); G47.10 Hypersomnia, unspecified | CPT/HCPCS: 95806 ==